=== PATIENT | female | born 1950 | race Caucasian/White ===

== ENCOUNTER 2019-10-16 14:41 | Emergency (ER) | payer OTHER ==
--- NOTE | 2019-10-16 15:30 | RADIOLOGY REPORT (SQ) ---
EXAM DESCRIPTION: CT FACIAL AREA WITHOUT COMPLETED DATE/TIME: 10/16/2019 3:14 pm REASON FOR STUDY: fall, head injury, + loc, on coumadin COMPARISON: None. TECHNIQUE: Noncontrasted images through the facial bones and orbits windowed for bone and soft tissu e. Additional coronal and sagittal reconstructed images reviewed. All images stored on PACS. All CT scanners at this facility use dose modulation, iterative reconstruction, and/or weight based d osing when appropriate to reduce radiation dose to as low as reasonably achievable (ALARA). [facility]: Dose Right [facility]: CareDose [facility]: Dose Right [facility]: Teradose 4D [facility]: [employer] RADIATION DOSE: CT Rad equipment meets quality standard of care and radiation dose reduction techniq ues were employed. CTDIvol: 30.4 mGy. DLP: 578 mGy-cm. mGy. LIMITATIONS: None. FINDINGS: FACIAL BONES: No fracture or bone lesion. ORBITS: Intact. No fracture. Symmetric intact globes and retroorbital soft tissues. PARANASAL SINUSES: Scant mucosal thickening is seen within the maxillary sinuses. No fluid levels. N o nasal polyps. Maxillary sinus outlets are patent. SOFT TISSUES: Left supraorbital hematoma. INFERIOR BRAIN: Limited view. No acute findings. OTHER: No other significant finding. IMPRESSION: Left supraorbital facial hematoma without underlying fracture. TECHNICAL DOCUMENTATION: JOB ID: [id number] Quality ID # [id number]: Final reports with documentation of one or more dose reduction techniques (e.g., Au tomated exposure control, adjustment of the mA and/or kV according to patient size, use of iterative reconstruction technique) 2010 [employer]- All Rights Reserved Reading location - IP/workstation name: [email or web address]
--- NOTE | 2019-10-16 15:36 | RADIOLOGY REPORT (SQ) ---
EXAM DESCRIPTION: CT HEAD WITHOUT COMPLETED DATE/TIME: 10/16/2019 3:21 pm REASON FOR STUDY: fall, head injury, + loc, on coumadin COMPARISON: None. TECHNIQUE: Axial images acquired through the brain without intravenous contrast. Images reviewed wi th bone, brain and subdural windows. Additional sagittal and coronal reconstructions were generated. Images stored on PACS. All CT scanners at this facility use dose modulation, iterative reconstruction, and/or weight based d osing when appropriate to reduce radiation dose to as low as reasonably achievable (ALARA). [facility]: Dose Right [facility]: CareDose [facility]: Dose Right [facility]: Teradose 4D [facility]: [employer] RADIATION DOSE: CT Rad equipment meets quality standard of care and radiation dose reduction techniq ues were employed. CTDIvol: 53.2 mGy. DLP: 991 mGy-cm. mGy. LIMITATIONS: None. FINDINGS: VENTRICLES: Normal size and contour. CEREBRUM: No masses. No hemorrhage. No midline shift. No evidence for acute infarction. Normal gra y/white matter differentiation. No areas of low density in the white matter. Incidental note is made of scant left basal ganglia calcifications. CEREBELLUM: No masses. No hemorrhage. No alteration of density. No evidence for acute infarction. EXTRAAXIAL SPACES: No fluid collections. No masses. ORBITS AND GLOBE: No intra- or extraconal masses. Normal contour of globe without masses. CALVARIUM: No fracture. PARANASAL SINUSES: No fluid or mucosal thickening. SOFT TISSUES: Left supraorbital scalp hematoma. OTHER: No other significant finding. IMPRESSION: Left supraorbital scalp hematoma without underlying calvarial injury or intracranial hem orrhage. EVIDENCE OF ACUTE STROKE: NO. COMMENT: Quality ID # [id number]: Final reports with documentation of one or more dose reduction techniques (e.g., Automated exposure control, adjustment of the mA and/or kV according to patient size, use of iterative reconstruction technique) TECHNICAL DOCUMENTATION: JOB ID: [id number] [employer]- All Rights Reserved Reading location - IP/workstation name: [email or web address]
[2019-10-16 16:07] LABS: HEMATOCRIT 40.4 % (36.0-47.0); HEMOGLOBIN 13.5 g/dL (12.0-15.5); MEAN CORPUSCULAR HEMOGLOBIN 29.9 pg (27.0-33.4); MEAN CORPUSCULAR HGB CONC 33.3 g/dL (32.0-36.0); MEAN CORPUSCULAR VOLUME 90 fl (80-97); PLATELET COUNT 250 10^3/uL (150-450); RED CELL DISTRIBUTION WIDTH 20.4 % (11.5-14.0); WHITE BLOOD COUNT 8.3 10^3/uL (4.0-10.5)
[2019-10-16 16:14] LABS: INTERNATIONAL RATION (INR) 2.21; PARTIAL THROMBOPLASTIN TIME 36.7 SEC (23.5-35.8); PROTHROMBIN TIME 24.9 SEC (11.4-15.4)
[2019-10-16 16:20] LABS: ALBUMIN 3.8 g/dL (3.5-5.0); ALKALINE PHOSPHATASE 188 U/L (38-126); ANION GAP 17 (5-19); ASPARTATE AMINO TRANSFERASE 52 U/L (14-36); BILIRUBIN,DIRECT 0.8 mg/dL (0.0-0.4); BILIRUBIN,TOTAL 1.8 mg/dL (0.2-1.3); BLOOD UREA NITROGEN 89 mg/dL (7-20); CARBON DIOXIDE 28 mmol/L (22-30); CHLORIDE 84 mmol/L (98-107); GLUCOSE 132 mg/dL (75-110); TOTAL PROTEIN 7.4 g/dL (6.3-8.2)
--- NOTE | 2019-10-16 16:21 | ER Document Report ---
ED General - General Chief Complaint: Head Injury Stated Complaint: FALL/EYE PAIN Time Seen by Provider: 10/16/19 16:03 Primary Care Provider: DIAZ TUBBS FNP [Primary Care Provider] - 10/19/19 TRAVEL OUTSIDE OF THE [place] IN LAST 30 DAYS: No - HPI Notes: Patient is a 69-year-old female with a history of congestive heart failure, A. fib (on Coumadin), type 2 diabetes who presents status post fall complaining of left supraorbital pain and swelling. Patient states that she was sitting on the edge of her bed and leaning forward when she lost her balance and fell on her f archana. Patient states that she has been ambulatory since then without any difficulties. She has no other areas of pain or discomfort. Patient states she just has some soreness above her eye where the swelling is. She is otherwise acting & behaving normally per family members. Denies any headache, fever, neck pain, changes in vision/speech/mentation/hearing, URI, sore throat, chest pain, palpitations, syncope, cough, shortness of breath, wheeze, dyspnea, abdominal pain, nausea/vomiting/diarrhea, urinary retention, dysuria, hematuria, loss of control of bowel or bladder, numbness/tingling, saddle anesthesia, muscle paralysis, or rash. - Related Data Allergies/Adverse Reactions: Penicillins Allergy (Verified 10/16/19 15:00) Home Medications: coumadin Past Medical History - Social History Smoking Status: Unknown if Ever Smoked Frequency of alcohol use: None Drug Abuse: None Family History: Reviewed & Not Pertinent Patient has suicidal ideation: No Patient has homicidal ideation: No - Past Medical History Cardiac Medical History: Reports: Hx Atrial Fibrillation, Hx Congestive Heart F ailure Endocrine Medical History: Reports: Hx Diabetes Mellitus Type 2 Review of Systems - Review of Systems -: Yes All other systems reviewed and negative Physical Exam - Vital signs Vitals: Temp Pulse Resp BP Pulse Ox 97.5 F 63 18 124/70 93 10/16/19 14:52 10/16/19 14:52 10/16/19 14:52 10/16/19 14:52 10/16/19 14:52 - Notes Notes: PHYSICAL EXAMINATION: GENERAL: Well-appearing, well-nourished and in no acute distress. A&Ox4. Answers questions appropriately. HEAD: Atraumatic, normocephalic. Non-tender. No sanchez sign Face: there is a hematoma noted left supraorbit/forehead with small abrasion, no laceration. EYES: Pupils round and reactive to light, extraocular movements intact, sclera anicteric, conjunctiva are normal. No raccoon eyes/entrapment. Left pupil slightly smaller than the right, but reacts appropriately otherwise. Unknown acuity. ENT: EAC clear b/l. TM's intact b/l without erythema, fluid, or perforation. Nares patent and without discharge. oropharynx clear without exudates. No tonsilar hypertrophy or erythema. Moist mucous membranes. No sinus tenderness. No hemotympanum/CSF discharge. NECK: Normal range of motion, supple without lymphadenopathy. No rigidity. No midline tenderness. Spurling negative. NEXUS negative. Chest: No flail chest. equal rise/fall. Non-tender LUNGS: Breath sounds clear to auscultation bilaterally and equal. No wheezes rales or rhonchi. HEART: Regular rate and rhythm without murmurs, rubs, gallops. ABDOMEN: Soft, nontender, nondistended abdomen. No guarding, no rebound. Normal bowel sounds present. No CVA tenderness bilaterally. Musculoskeletal: Ext b/l: FROM to passive/active. Strength 5+/5. No deficits noted. No bony tenderness of extremities. Pelvis stable. Pt able to ambulate >4 steps. Back: FROM to passive/active. Strength 5+/5. No vertebral point tenderness, stepoffs, or deformities. No other bony tenderness or ecchymosis. SLR negative b/l. Extremities: No cyanosis, clubbing, or edema b/l. Peripheral pulses 2+. Capillary refill less than 2 seconds. NEUROLOGICAL: NIH 0. GCS 15. Cranial nerves grossly intact. Normal speech, normal gait. Normal sensory, motor exams. Reflexes 2+ b/l. RED's negative. Pronator drift negative. Heel/gordon, finger/nose wnl. PSYCH: Normal mood, normal affect. SKIN: see above Course - Re-evaluation Re-evalutation: 10/16/19 Patient is an afebrile, well-hydrated, 69-year-old female who presents with a supra orbital hematoma on the left side status post fall and incidental finding of hypokalemia otherwise asymptomatic. Vitals are acceptable without significant tachycardia, tachypnea, hypoxia. PE is otherwise unremarkable for any focal neurological deficits. NIH 0, GCS 15, cranial is grossly intact, Nexus criteria negative. CT scan of the head and face were unremarkable. CBC and coags acceptable. CMP does show that she might be a little bit dry, but creatinine otherwise at baseline. Her potassium is at 2.9. Patient has been given 20 mg IV potassium chloride as well as 20 mg p.o. Patient's daughter would not allow for anything else to be given and did not want us to replenish any of her potassium aside from 10meq PO to begin with. I did try to educate the daughter on potassium replenishment, but she was speaking as though she did not care what I had to say. EKG acceptable. Patient is feeling well and would like to go home. No further work-up warranted at this time. Low suspicion for any acute glaucoma, temporal arteritis, meningitis, intracranial hemorrhage, ischemic stroke, or fracture at this time. Patient is aware that condition can change from initial presentation and that she needs to monitor symptoms closely for any acute changes. They are to recheck with PCM on Saturday. She according to the daughter, patient is having labs drawn again tomorrow. Return to the ED with any other worsening/concerning symptoms. Patient and family in agreement. - Vital Signs Vital signs: Temp Pulse Resp BP Pulse Ox 97.5 F 63 18 124/70 93 10/16/19 14:52 10/16/19 14:52 10/16/19 14:52 10/16/19 14:52 10/16/19 14:52 - Laboratory Result Diagrams: 10/16/19 15:45 10/16/19 15:45 Laboratory results interpreted by me: 10/16/19 10/16/19 10/16/19 15:45 15:45 15:45 RDW 20.4 H Seg Neuts % (Manual) 84 H Band Neutrophils % 2 L Lymphocytes % (Manual) 4 L Abs Lymphs (Manual) 0.3 L PT 24.9 H APTT 36.7 H Sodium 128.7 L Potassium 2.9 L* Chloride 84 L BUN 89 H Creatinine 1.71 H Est GFR ( Amer) 36 L Est GFR (MDRD) Non-Af 29 L Glucose 132 H Total Bilirubin 1.8 H Direct Bilirubin 0.8 H AST 52 H Alkaline Phosphatase 188 H Discharge - Discharge Clinical Impression: Hypokalemia, Supraorbital ecchymosis Head injury Qualifiers: Encounter type: initial encounter Qualified Code(s): S09.90XA - Unspecified injury of head, initial encounter Condition: Stable Disposition: HOME, SELF-CARE Additional Instructions: Rest, Ice/cool compress Tylenol as needed Have your labs drawn in the next few days for your potassium level Push water intake to stay hydrated F/u with your PCP in 2-3 days for a recheck Consider consult(s) with Neurology for ongoing/worsening symptoms Return to the ED with any worsening symptoms and/or development of fever, severe headache, changes in behavior/mentation/vision/speech, chest pain, palpitations, syncope, shortness of breath, trouble breathing, abdominal pain, n/v/d, blood in stool/urine, loss of control of bowel/bladder, urinary retention, muscle weakness/paralysis, saddle anesthesia, numbness/tingling, or other worsening symptoms that are concerning to you. Referrals: DIAZ TUBBS FNP [Primary Care Provider] - 10/19/19
[2019-10-16 16:26] LABS: POTASSIUM 2.9 mmol/L (3.6-5.0)
[2019-10-16 16:28] LABS: ABSOLUTE LYMPHOCYTES# (MANUAL) 0.3 10^3/uL (0.5-4.7); ABSOLUTE MONOCYTES # (MANUAL) 0.7 10^3/uL (0.1-1.4); BAND NEUTROPHILS % (MANUAL) 2 % (3-5); BASOPHILS % (MANUAL) 0 % (0-2); EOSINOPHILS % (MANUAL) 1 % (0-6); LYMPHOCYTES % (MANUAL) 4 % (13-45); MONOCYTES % (MANUAL) 9 % (3-13); NUCLEATED RED BLOOD CELLS 1 /100 WBC (0); SEGMENTED NEUTROPHILS % (MAN) 84 % (42-78); TOTAL CELLS COUNTED 100
[2019-10-16] MEDS ORDERED: POTASSIUM CHLORIDE 10 MEQ TABLET.ER PO ONE ×3 (16:29→17:52)
[2019-10-16] MEDS ORDERED: POTASSI CL 20 MEQ/50 ML RIDER 20 MEQ/50 ML RTUPB IV ONE (16:29)
[2019-10-16 16:30] LABS: ANISOCYTOSIS 2+; HYPOCHROMASIA SLIGHT; OVALOCYTES SLIGHT; PLATELET COMMENT ADEQUATE; SMUDGE CELLS PRESENT; TEAR DROP CELLS SLIGHT
[2019-10-16] MEDS ORDERED: ACETAMINOPHEN 325 MG TABLET PO ONE (16:51)
[2019-10-16 18:38] VITALS: BP 115/74
--- NOTE | 2019-10-17 12:37 | EKG REPORT ---
SEVERITY:- ABNORMAL ECG - AFIB/FLUT AND POSSIBLE V-PACED COMPLEXES LEFT BUNDLE BRANCH BLOCK FREQUENT VENTRICULAR ECTOPICS : Confirmed by: Georgia Khan 17-Oct-2019 12:36:50
== END 2019-10-16 18:38 | disposition home or self-care (01) ==
LOC: ER 14:41
DX: S00.83XA Contusion of other part of head, initial encounter (principal); S00.81XA Abrasion of other part of head, initial encounter; W06.XXXA Fall from bed, initial encounter; E87.6 Hypokalemia; E11.9 Type 2 diabetes mellitus without complications; I48.91 Unspecified atrial fibrillation; Z79.01 Long term (current) use of anticoagulants; Z88.0 Allergy status to penicillin
CPT/HCPCS: 93005; 99284; 96365; 36415; 85025; 85610; 85730; 80053; 70450; 70486; 93010; A9270 ×2; J3480